=== PATIENT | female | born 1950 | race Caucasian/White ===

== ENCOUNTER → 2022-09-20 08:39 | Outpatient (BNVA) | payer MEDICARE, SELFPAY | PROVIDERS: PCP Student in an Organized Health Care Education/Training Program; Visit Provider Internal Medicine Endocrinology, Diabetes & Metabolism | DX: M81.0 Age-related osteoporosis without current pathological fracture (principal) | CPT/HCPCS: 99202 ==

== ENCOUNTER 2023-01-30 08:30 | Outpatient (REF) | payer MEDICARE, SELFPAY ==
[2023-01-30 11:15] LABS: Albumin Level 4.2 g/dL (3.5-5.0); Anion Gap 11 (12-20); Blood Urea Nitrogen 14 mg/dL (9-16); Carbon Dioxide 26 mmol/L (22-29); Chloride 107 mmol/L (96-108); Estimated Glomerular Filt Rate > 60; Glucose Random 94 mg/dL (60-115); Phosphorus 3.2 mg/dL (2.7-4.5); Potassium 3.9 mmol/L (3.3-5.1); Sodium 140 mmol/L (135-145)
[2023-01-30 11:32] LABS: Free T4 (Free Thyroxine) 1.28 ng/dL (0.71-1.85); Thyroid Stimulating Hormone 0.11 uIU/mL (0.32-4.0); Vitamin D 25-OH Total 57.5 ng/mL (>30)
[2023-01-30 14:08] LABS: Creatinine, mg/dL 81.02
[2023-01-30 15:38] LABS: Creatinine, 24Hr Urine 0.6 G/Day (1.0-2.0); Total Volume 24 Hour Urine 775 mL
[2023-01-31 18:54] LABS: Calcium, 24 Hr Urine 114 mg/24 h; Calcium/Creatinine Ratio 188 mg/g creat (30-275)
[2023-02-01 13:04] LABS: Prot Elec - Albumin 4.2 g/dL (3.8-4.8); Prot Elec - Alpha1 0.3 g/dL (0.2-0.3); Prot Elec - Alpha2 0.7 g/dL (0.5-0.9); Prot Elec - Beta 1 0.4 g/dL (0.4-0.6); Prot Elec - Beta 2 0.4 g/dL (0.2-0.5); Prot Elec - Gamma 1.1 g/dL (0.8-1.7); Prot Elec - Total Protein 7.1 g/dL (6.1-8.1)
== END 2023-01-30 08:31 | disposition home or self-care (01) ==
LOC: HO.10HDL 08:30
PROVIDERS: Visit Provider Internal Medicine Endocrinology, Diabetes & Metabolism
DX: M81.0 Age-related osteoporosis without current pathological fracture (principal); Z20.2 Contact with and (suspected) exposure to infections with a predominantly sexual mode of transmission; R53.83 Other fatigue
CPT/HCPCS: 80048; 82040; 82306; 82340; 82570; 84100; 84165; 84439; 84443; 86335

== ENCOUNTER 2023-05-17 09:06 | Outpatient (AMB) | payer MEDICARE, SELFPAY ==
[2023-05-17 09:09] VITALS: BP 144/80; PULSE 49; BMI 24.3
--- NOTE | 2023-05-17 09:09 | MHC.OFFVIS ---
Intake Vital Signs 05/17/23 09:09 Height 5 ft 4.72 in Weight 144 lb 13.499 oz BMI 24.3 BP 144/80 H Blood Pressure Location Lt brachial Position Sitting Pulse 49 L Pulse Source Pulse Oximeter Intake Visit Reasons: f/u osteoporosis-confirmed Intake Note: Patient presents today for Osteoporosis follow up visit. Magnetic Grinder Operator Required: No Accompanied by: Self / Same As Patient Allergies No Known Allergies Allergy (Verified 05/17/23 09:13) Medication List - Last Reconciled 05/17/23 by Michael Lee MD amlodipine 10 mg PO BEDTIME celecoxib 0 mg PO cholecalciferol (vitamin D3) 25 mcg PO DAILY levothyroxine 137 mcg PO DAILY omeprazole 20 mg PO BID oxybutynin chloride ER 10 mg PO DAILY trazodone 150 mg PO BEDTIME HPI HPI Comments History of Present Illness Details 72 YO F with is seen in consultation at the request of PCP for Osteoporosis. First diagnosed in 04/12/2022. Not Received treatment in the past No history of pathologic fracture or ONJ. Has several servings of dietary calcium per day in the form of milk, cheese . Not Takes Calcium supplement Takes 1000 IU of Vitamin D daily. Takes PPI, No anticoagulant, antiepileptic or glucocorticoid medication. Not Does weight bearing exercise. 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 UTD on dental cleanings and sees dentist every 6 months. No planned upcoming dental work or extractions. DXA dated 04/04: T-score in the femoral neck of -2.7 Labs: [facility] Medical History (Updated 09/20/22 @ 09:01 by Michael Lee MD) Osteoporosis Surgical History History of bilateral tubal ligation Hx of total knee replacement Hx of appendicitis Family History Mother Lung cancer Brain tumor Father Brain tumor Lung cancer Social History Alcohol intake: current Alcohol intake frequency: holidays/special occasions only Patient Tobacco Use Status: Never used Tobacco Physical Exam Vital Signs: Last Vital Signs Pulse 49 L 05/17/23 09:09 BP 144/80 H 05/17/23 09:09 BMI result Body Mass Index 24.3 Assessment & Plan Assessment & Plan (1) Osteoporosis: Code(s): M81.0 - Age-related osteoporosis without current pathological fracture Plan: This 72-year-old white female with a history of osteoporosis. Secondary causes have been ruled out. There was a slightly low TSH but hypothyroidism is managed by patient's primary care provider Plan is to discuss potential use of an anti resorptive agent like oral alendronate versus or Reclast. After a careful discussion with the patient regarding options including initiation of oral bisphosphonate for intravenous bisphosphonate versus repeating bone density in 1 year on a DEXA with TBS capacity, patient is opting to go on oral bisphosphonate. We will start alendronate 70 mg Q weekly. Went over proper administration of alendronate and side effects which include rare side effects of atypical femur fracture and osteonecrosis of the jaw Medications: New alendronate 70 mg PO QWEEK 5 tabs 11RF Coding Level of Care Code Est Pt Level 3 (48987) Diagnoses Osteoporosis M81.0
== END 2023-05-17 09:42 | disposition home or self-care (01) ==
PROVIDERS: PCP Student in an Organized Health Care Education/Training Program; Visit Provider Internal Medicine Endocrinology, Diabetes & Metabolism
DX: M81.0 Age-related osteoporosis without current pathological fracture (principal)
CPT/HCPCS: 99213

== ENCOUNTER → 2023-05-17 09:06 | Outpatient (BNVA) | payer MEDICARE, SELFPAY | PROVIDERS: PCP Student in an Organized Health Care Education/Training Program; Visit Provider Internal Medicine Endocrinology, Diabetes & Metabolism | DX: M81.0 Age-related osteoporosis without current pathological fracture (principal) | CPT/HCPCS: 99212 ==

== ENCOUNTER 2024-07-01 11:01 | Outpatient (AMB) | payer MEDICARE, SELFPAY ==
--- NOTE | 2024-07-01 11:08 | MHC.OFFVIS ---
Vital Signs 07/01/24 11:11 Height 5 ft 3.02 in Weight 141 lb 8.588 oz BMI 25.1 BP 114/82 Blood Pressure Location Rt brachial Position Sitting Pulse 58 Pulse Source Pulse Oximeter Pulse Oximetry (%) 97 Oxygen Delivery Method Room Air Intake Visit Reasons: f/u osteoporosis Intake Note: Patient presents today for Osteoporosis follow up visit. Credit Collection Specialist Required: No Accompanied by: Self / Same As Patient Allergies No Known Allergies Allergy (Verified 07/01/24 11:12) Medication List - Last Reconciled 07/01/24 by Michael Lee MD acetaminophen (Tylenol Extra Strength) 500 mg PO Q6H PRN alendronate 70 mg PO QWEEK amlodipine 10 mg PO BEDTIME celecoxib 0 mg PO cholecalciferol (vitamin D3) 25 mcg PO DAILY levothyroxine 137 mcg PO DAILY omeprazole 20 mg PO BID oxybutynin chloride ER 10 mg PO DAILY trazodone 150 mg PO BEDTIME HPI Comments Details: 73 YO F with is seen in consultation at the request of PCP for Osteoporosis. First diagnosed in 04/12/2022. Not Received treatment in the past No history of pathologic fracture or ONJ. Has several servings of dietary calcium per day in the form of milk, cheese . Not Takes Calcium supplement Takes 1000 IU of Vitamin D daily. Takes PPI, No anticoagulant, antiepileptic or glucocorticoid medication. Not Does weight bearing exercise. 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 UTD on dental cleanings and sees dentist every 6 months. No planned upcoming dental work or extractions. DXA dated 04/04: T-score in the femoral neck of -2.7 Labs: Currently on alendronate 70 mg Q weekly since 05/2023 . No fx since last visit. Taking calcium and vitamin D . [facility] Medical History (Updated 09/20/22 @ 09:01 by Michael Lee MD) Osteoporosis Surgical History History of bilateral tubal ligation Hx of total knee replacement Hx of appendicitis Family History Mother Lung cancer Brain tumor Father Brain tumor Lung cancer Social History Alcohol intake: current Alcohol intake frequency: holidays/special occasions only Patient Tobacco Use Status: Never used Tobacco Physical Exam Vital Signs: BMI result Body Mass Index 25.1 Assessment & Plan Assessment & Plan (1) Osteoporosis: Code(s): M81.0 - Age-related osteoporosis without current pathological fracture Category: Medical Plan: This 73-year-old white female with a history of osteoporosis. Secondary causes have been ruled out. Currently on alendronate 70 mg Q weekly for 1 year's time Plan is to check urine NTX as well as repeat DEXA of hip and spine. Depending upon above, may continue alendronate or give drug holiday. Patient should continue with calcium and vitamin-D Orders: Orders Collagen Crosslinks NTX Today M81.0 - Age-related osteoporosis without current pathological fracture XR DEXA axial skeleton Today M81.0 - Age-related osteoporosis without current pathological fracture Coding Level of Care Code Est Pt Level 3 (24065) Diagnoses Osteoporosis M81.0
[2024-07-01 11:11] VITALS: BP 114/82; PULSE 58; O2SAT 97; BMI 25.1
--- OUTSIDE RECORDS SUMMARY | 2024-07-01 12:12 | XMS_ITS | Clinical Summary ---
Author Organization [facility] Address [address] [place] [address] Care Team Providers Care Halal Butcher Name Role Phone Shanice West MD Primary Care Provider [phone] Allergies No known active allergies Medications Medication Sig Dispensed Refills Start Date End Date Status amLODIPine (NORVASC) tablet 10 mg Take one tab every evening. 0 03/24/2020 Active Cholecalciferol (VITAMIN D3) 50 MCG (1999 UT) capsule as directed 0 Active esomeprazole (NexIUM) capsule 20 mg 1 capsule 0 Active hydroCHLOROthiazide (HYDRODIURIL) tablet 25 mg Take 25 mg by mouth. 0 03/11/2020 Active levothyroxine (SYNTHROID, LEVOXYL) tablet 150 mcg Take 150 mcg by mouth. 0 07/28/2019 Active omeprazole (PriLOSEC) 20 MG capsule Take 20 mg by mouth 2 (two) times a day. 0 05/30/2021 Active oxybutynin (DITROPAN-XL) 5 MG 24 hr tablet Take 5 mg by mouth daily. 0 08/15/2021 Active phenazopyridine (PYRIDIUM) 100 MG tablet TAKE 2 TABLETS BY MOUTH 3 TIMES A DAY NEEDED FOR URINARY DISCOMFORT 0 09/15/2021 Active amoxicillin (AMOXIL) 500 MG tablet Take 4 tabs 1 hour prior to dental appointment 20 tablet 3 11/24/2021 Active celecoxib (CeleBREX) 200 MG capsule Take 200 mg by mouth daily. 0 11/13/2021 Active gabapentin (NEURONTIN) 300 MG capsule Take 300 mg by mouth every evening. 0 11/13/2021 Active methocarbamol (ROBAXIN) 750 MG tablet TAKE 1 TABLET BY MOUTH EVERY 6 HOURS NEEDED FOR SPASM (NOT CVD) 0 11/13/2021 Active oxyCODONE (ROXICODONE) 5 MG immediate release tablet Take 1-2 tabs every 6 hours as needed for pain 40 tablet 0 11/30/2021 Active sulfamethoxazole-tr imethoprim (BACTRIM DS) 800-160 MG per tablet TAKE 1 TABLET BY MOUTH TWICE A DAY FOR 7 DAYS TAKE WITH FOOD YOGURT [employer]OT[employer] FINISH ALL 14 tablet 0 01/05/2022 Active acetaminophen (TYLENOL EXTRA STRENGTH) 500 MG tablet Take 1,000 mg by mouth every 8 (eight) hours as needed. 0 11/13/2021 Active traZODone (DESYREL) 100 MG tablet Take 100 mg by mouth every night at bedtime. 0 12/22/2021 Active oxyCODONE (ROXICODONE) 5 MG immediate release tablet Take 1 tab every 12 hours as needed for pain 30 tablet 0 01/10/2022 Active traMADol (ULTRAM) 50 MG tablet Take 1 tab every 12 hours as needed for pain 30 tablet 0 03/14/2022 Active Active Problems Problem Noted Date Diagnosed Date Chronic pain of right knee 01/10/2022 Social History Tobacco Use Types Packs/Day Years Used Date Smoking Tobacco: Never Assessed Sex and Gender Information Value Date Recorded Sex Assigned at Not on file Gender Identity Not on file Sexual Orientation Not on file Job Start Date Occupation Industry Not on file Not on file Not on file Last Filed Vital Signs Vital Sign Reading Time Taken Comments Blood Pressure - - Pulse - - Temperature - - Respiratory Rate - - Oxygen Saturation - - Inhaled Oxygen Concentration - - Weight 75.3 kg (166 lb) 10/25/2021 11:10 AM EDT Height 162.6 cm (5' 4 ) 10/25/2021 11:10 AM EDT Body Mass Index 28.49 10/25/2021 11:10 AM EDT Plan of Treatment Health Maintenance Due Date Last Done Comments Hepatitis C Screening 1949 Depression Screening 1961 Preventative Health Evaluation 10/08/1967 Colon Cancer Screening (Colonoscopy) 1994 Breast Cancer Screening (Mammogram) 10/08/1999 Fall Risk Assessment 2014 Osteoporosis Screening (DEXA Scan) 2014 Pneumococcal Vaccine (2 of 2 - PCV) 09/05/2019 09/04/2018 Shingrix-Zoster Vaccine (2 of 2) 05/02/2021 03/07/2021 DTap / Tdap / Td (2 - Td or Tdap) 03/03/2023 03/03/2013 COVID-19 Vaccine (3 season) 2024 07/24/2020, 07/03/2020 Influenza Vaccine (#1) 2024 , 02/10/2020, 02/18/2019, Additional history exists RSV Adult > 60+ Yrs or (1 - 1-dose 75+ series) 2024 Hepatitis B Vaccines Aged Out No long er eligible based on patient's age to complete this topic RSV Ped < 20 months Aged Out No longe r eligible based on patient's age to complete this topic Care Teams Halal Butcher Relationship Specialty Start Date End Date Shanice West MD [address] [place] [phone] PCP - General Family Medicine 05/20/21
--- OUTSIDE RECORDS SUMMARY | 2024-07-01 12:12 | XMS_ITS | Data Portability ---
Author Organization [place] [facility] [place] [place] Address [address] [facility] [address] [place] [address] Care Team Providers Care Database Security Expert Name Role Phone MAC HEATH Primary Care Provider [phone] Assessment Encounter Date Assessment Date Assessment LastModified by Organization Details LastModified Time 08/01/2022 08/01/2022 Ms. Mcgee continues to do very well after undergoing right total knee replacement surgery on November 11, 2021. She will continue with her home exercise program. She does know to take antibiotics before any dental work. She will contact me prior to her annual follow-up appointment should any questions or concerns arise. jai Not available 08/01/2022 16:18:02 Plan of Treatment Reminders Order Date Submit Date Provider Last Modified By Organization Details Last Modified Time Details Appointments None record ed. Lab None record ed. Referral None record ed. Procedures None record ed. Surgeries None record ed. Imaging XR, knee, 1 or 2 view 023 08/02/19 [facility] [place] [facility], [address], [address], [place], [address], 3 10:09:56 Medication Orders None record ed. Patient TargetsNo targets recorded. Patient InstructionsNo instructions recorded. Reason for Referral None Reported. Procedures Surgical History Date Name Laterality Status Provider Name and Address Organization Details Recorded Time Appendectomy completed Rae Zee [facility] [place], 08/01/2022 15:25:02 Total knee arthroplasty completed Rae Zee [facility] [place], 08/01/2022 15:25:15 Imaging Results None recorded. Procedure Notes None recorded. Medical Equipment None Reported. Allergies No known drug allergies Medications Name Sig Start Date Stop Date Status Note LastModified by Organization Details LastModified Time celecoxib 200 mg capsule TAKE 1 CAPSULE BY MOUTH DAILY active Not Available Not Available No t Available levothyroxi ne 137 mcg tablet active Not Available Not Available Not Available oxybutynin chloride ER 10 mg tablet,exte nded release 24 hr active Not Available Not Available Not Available sulfamethox azole 800 mg-trimetho prim 160 mg tablet TAKE 1 TABLET BY MOUTH TWICE A DAY FOR 7 DAYS TAKE WITH FOOD YOGURT PROBIOT[employer] S FINISH ALL active Not Available Not Available No t Available tramadol 50 mg tablet TAKE 1 TABLET EVERY 12 HOURS NEEDED FOR PAIN active Not Available Not Available No t Available amoxicillin 500 mg tablet TAKE 4 TABS 1 HOUR PRIOR TO DENTAL APPOINTME NT active Not Available Not Available No t Available methocarbam ol 750 mg tablet TAKE 1 TABLET BY MOUTH EVERY 6 HOURS NEEDED FOR SPASM (NOT CVD) active Not Available Not Available No t Available trazodone 100 mg tablet TAKE 1 TABLET BY MOUTH EVERYDAY AT BEDTIME active Not Available Not Available No t Available phenazopyri dine 100 mg tablet TAKE 2 TABLETS BY MOUTH 3 TIMES A DAY NEEDED FOR URINARY DISCOMFOR T active Not Available Not Available No t Available amlodipine 10 mg tablet TAKE 1 TABLET BY MOUTH EVERY NIGHT AT BEDTIME active Not Available Not Available No t Available trazodone 150 mg tablet TAKE 1 TABLET BY MOUTH EVERY NIGHT AT BEDTIME active Not Available Not Available No t Available levothyroxi ne 150 mcg tablet TAKE 1 TABLET BY MOUTH EVERY DAY IN THE MORNING active Not Available Not Available No t Available oxybutynin chloride ER 5 mg tablet,exte nded release 24 hr TAKE 1 TABLET BY MOUTH EVERY DAY active Not Available Not Available No t Available gabapentin 300 mg capsule TAKE 1 CAPSULE BY MOUTH EVERY EVENING active Not Available Not Available No t Available omeprazole 20 mg capsule,del ayed release TAKE 1 CAPSULE BY MOUTH TWICE A DAY active Not Available Not Available No t Available warfarin 1 mg tablet TAKE 4 PILLS BY MOUTH DAILY AT DINNER UNLESS OTHERWISE INSTRUCTE D BY DR ROCHA'S OFFICE 08/01 completed Not Available Not Available Not Available amoxicillin 500 mg-potassiu m clavulanate 125 mg tablet TAKE 1 TABLET BY MOUTH TWICE A DAY active Not Available Not Available No t Available oxycodone 5 mg tablet TAKE 1 TABLET BY MOUTH EVERY 12 HOURS NEEDED FOR PAIN 08/01 completed Not Available Not Available Not Available enoxaparin 40 mg/0.4 mL subcutaneou s syringe ONE INJECTION DAILY TAKE DAILY UNTIL INR IS 2 OR > 08/01 completed Not Available Not Available Not Available Senexon-S 8.6 mg-50 mg tablet TAKE 2 TABLETS BY MOUTH EVERY EVENING active Not Available Not Available No t Available Vitals Date Recorded Body weight Body mass index (BMI) Body height Provider Name and Address Organization Details Last Updated DateTime 08/01/2022 62067.33 g 28.5 kg/m2 162.[address] [facility] [place], 08/01/2022 15:24:15 Social History None recorded. Functional Status None recorded. Mental Status None recorded. Family History Relationship Description Onset Age of this Age Resolved Age Notes LastModified by Organization Details LastModified Time Mother Family history of malignant neoplasm [email or web address] Not available 2022 15:24:34 Father Hypertensive disorder [email or web address] Not available 2022 15:24:48 Medical History Condition Response Hypertension Y Gynecological HistoryNo gynecological history recorded. Obstetrics History GPAL:G 0 P 0 0 0 0 Past Encounters Encounter ID Performer Location Encounter Start Date Encounter Closed Date Diagnosis/Indication Diagnosis SNOMED-CT Code Diagnosis ICD10 Code Diagnosis Note [id number] MD BASSEM Cifuentes [address] [address] 08/01/2022 15:09:03 08/01/2022 16:09:03 Pain of right knee joint 2176871087 31911 M25.561 Health Concerns Section Related Observation LastModified by Organization Detai ls LastModified Time None Recorded Concern Status LastModified by Organization Details LastModified Time None Recorded Advance Directives Directive None Recorded Payers Encounter Date Sequence Insurance Name Policy Number Policy Gamble Covered Member ID Gamble Member ID Guarantor Name 08/01/2022 1 [facility] (MEDICARE REPLACEMENT/A DVANTAGE - PPO) [id number] Gay B Parent [id number] Gay Parent Notes Date Note Type Note Provider Name and Address Organization Details Recorded Time 08/01/2022 text/html The patient presents with complaints of mild intermittent discomfort in her right knee after undergoing right total knee replacement surgery on November 11, 2021. She continues to ride her bike for exercise. She denies any fevers or chills. She does not take any medicines for discomfort. Alan Rocha MD [address] [place] [address], [place], [address], [place] [facility] [place] 08/01/2022 16:18:16 OBGyn Episode No OBEpisode recorded.
== END 2024-07-01 11:24 | disposition home or self-care (01) ==
PROVIDERS: PCP Student in an Organized Health Care Education/Training Program; Visit Provider Internal Medicine Endocrinology, Diabetes & Metabolism
DX: M81.0 Age-related osteoporosis without current pathological fracture (principal)
CPT/HCPCS: 99213

== ENCOUNTER → 2024-07-01 11:01 | Outpatient (BNVA) | payer MEDICARE, SELFPAY | PROVIDERS: PCP Student in an Organized Health Care Education/Training Program; Visit Provider Internal Medicine Endocrinology, Diabetes & Metabolism | DX: M81.0 Age-related osteoporosis without current pathological fracture (principal) | CPT/HCPCS: 99212 ==

== ENCOUNTER 2024-07-04 12:54 | Outpatient (REF) | payer MEDICARE, SELFPAY ==
--- NOTE | ~2024-07-04 | MM_ITS ---
EXAMINATION: DXA BONE DENSITY AXIAL HISTORY: Estrogen deficiency TECHNIQUE: BitPoster Dual energy absorptiometry (DEXA) of the lumbar spine, total left hip, and femoral neck was performed. COMPARISON: There are no prior studies for comparison. FINDINGS: The bone mineral density of the lumbar spine is 0.934 with a T-score of -2.1, and a Z-score of -0.2. The bone mineral density of the left total hip is 0.815 with a T-score of -1.5, and a Z-score of 0.2. The bone mineral density of the left femoral neck is 0.758 with a T-score of -2.0, and a Z-score of -0.1. FRACTURE RISK: The FRAX index suggests a risk of major osteoporotic fracture of 19.7%, and of hip fracture 4.9%. MM/XR DEXA axial skeleton IMPRESSION: Based on bone mineral density, and according to World Health Organization (WHO) criteria, the diagnosis is consistent with osteopenia. All bone density values are in grams per centimeter squared (g/cm2). Statistically, 68% of repeat scans fall within 1 SD (+/- 0.010 g/cm2 for AP spine L1-L4) and 1 SD (+/- 0.012 g/cm2 for femur total) FRAX is a trademark of the [employer] [place] for Metabolic Bone Disease, a World Health Organization (WHO) Collaborating Center. Electronically signed by: Michael Schneider MD 07/07/2024 08:52 AM EST
--- OUTSIDE RECORDS SUMMARY | 2024-07-04 13:25 | XMS_ITS | Clinical Summary ---
Author Organization [facility] Address [address] [place] [address] Care Team Providers Care Hot Die Press Operator Name Role Phone Shanice West MD Primary Care Provider [phone] Allergies No known active allergies Medications Medication [...] age to complete this topic Care Teams Hot Die Press Operator Relationship Specialty Start Date End Date Shanice West MD [address] [place] [phone] PCP - General Family Medicine 05/20/21
--- OUTSIDE RECORDS SUMMARY | 2024-07-04 13:25 | XMS_ITS | Data Portability ---
Author Organization [place] [facility] [place] Address [address] [facility] [address] [place] [address] Care Team Providers Care Defect Repairer Glassware Name Role Phone MAC HEATH Primary Care Provider Assessment Encounter Date Assessment Date Assessment LastModified [...] 1 or 2 view 023 08/02/19 23 [facility], [address], [place], [address], 3 10:09:56 Medication Orders None record ed. Patient TargetsNo targets recorded. Patient InstructionsNo instructions recorded. Reason for Referral None Reported. Procedures Surgical History Date Name Laterality Status Provider Name and Address Organization Details Recorded Time Appendectomy completed Rae Zee [facility] [place], 08/01/2022 15:25:02 Total knee arthroplasty completed Rae Zee [facility] [place], 08/01/2022 15:25:15 Imaging Results None recorded. Procedure [...] Address Organization Details Last Updated DateTime 08/01/2022 05506.33 g 28.5 kg/m2 162.[address] [facility] [place], 08/01/2022 15:24:15 Social History None recorded. Functional [...] Code Diagnosis Note [id number] MD BASSEM Cifuentes [address] [address] 08/01/2022 15:09:03 08/01/2022 16:09:03 Pain of right knee joint [id number] 80884 M25.561 Health Concerns Section Related Observation LastModified by Organization Detai ls LastModified Time None Recorded Concern Status LastModified by Organization Details LastModified Time None Recorded Advance Directives Directive None Recorded Payers Encounter Date Sequence Insurance Name Policy Number Policy Gamble Covered Member ID Gamble Member ID Guarantor Name 08/01/2022 1 [facility] (MEDICARE REPLACEMENT/A DVANTAGE - PPO) [id number] Gay B Parent [id number] Gay Parent Notes Date Note Type Note [...] any medicines for discomfort. Alan Rocha MD [address] [place] [address], [place], [address], [place] [facility] 08/01/2022 16:18:16 OBGyn Episode No OBEpisode recorded.
== END 2024-07-04 12:55 | disposition home or self-care (01) ==
LOC: HO.MAMMO 12:54
PROVIDERS: PCP Student in an Organized Health Care Education/Training Program; Visit Provider Internal Medicine Endocrinology, Diabetes & Metabolism
DX: M81.0 Age-related osteoporosis without current pathological fracture (principal)
CPT/HCPCS: 77080; 82523

== ENCOUNTER → 2024-07-04 13:30 | Outpatient (BNV) | payer MEDICARE, SELFPAY | PROVIDERS: PCP Student in an Organized Health Care Education/Training Program; Visit Provider Radiology Diagnostic Radiology | DX: E28.39 Other primary ovarian failure (principal) | CPT/HCPCS: 77080 ==

== ENCOUNTER 2025-03-31 10:37 | Outpatient (AMB) | payer MEDICARE, SELFPAY ==
[2025-03-31 10:39] VITALS: BP 128/80; PULSE 61; O2SAT 97; BMI 26.4
--- NOTE | 2025-03-31 10:39 | MHC.OFFVIS ---
Vital Signs 03/31/25 10:39 Height 5 ft 3.02 in Weight 149 lb 0.52 oz BMI 26.4 BP 128/80 Blood Pressure Location Lt brachial Position Sitting Pulse 61 Pulse Source Pulse Oximeter Pulse Oximetry (%) 97 Oxygen Delivery Method Room Air Intake Visit Reasons: f/u osteoporosis Intake Note: Patient presents today for Osteoporosis follow up visit. Closet Organizer Required: No Accompanied by: Self / Same As Patient Allergies No Known Allergies Allergy (Verified 03/31/25 10:43) Medication List - Last Reconciled 03/31/25 by Michael Lee MD acetaminophen (Tylenol Extra Strength) 500 mg PO Q6H PRN alendronate 70 mg PO QWEEK amlodipine 10 mg PO BEDTIME celecoxib 0 mg PO cholecalciferol (vitamin D3) 25 mcg PO DAILY levothyroxine 137 mcg PO DAILY omeprazole 20 mg PO BID oxybutynin chloride ER 10 mg PO DAILY trazodone 150 mg PO BEDTIME HPI Comments Details: 74 YO F with is seen in consultation at the request of PCP for Osteoporosis. First diagnosed in 04/12/2022. Not Received treatment in the past No history of pathologic fracture or ONJ. Has several servings of dietary calcium per day in the form of milk, cheese . Not Takes Calcium supplement Takes 1000 IU of Vitamin D daily. Takes PPI, No anticoagulant, antiepileptic or glucocorticoid medication. Not Does weight bearing exercise. Fracture history: hand 2011 Height loss: No WO[employer]WORK[employer] OFF[employer] history: age 53- nl menses prior Denies history of Kidney stones: Denies family history of Osteoporosis or hip fracture. UTD on dental cleanings and sees dentist every 6 months. No planned upcoming dental work or extractions. DXA dated 04/04: T-score in the femoral neck of -2.7 Labs: Currently on alendronate 70 mg Q weekly since 05/2023 . No fx since last visit. Taking calcium and vitamin D . Secondary workup was negative. Urine NTX was suppressed. Repeat DEXA showed low bone mass The patient is a 74-year-old female presenting with concerns related to bone health. She has been taking alendronate, which has resulted in improvement in bone density, moving from the osteoporotic range to the osteopenic range. A urine NTX test indicated a positive response to the medication, showing reduced bone resorption. In June, the patient experienced a fall after tripping over a dog, resulting in a significant hematoma on her side, but no fractures were sustained. She also mentioned a condition affecting her right knee ,bursitis although it was not specified further in the conversation. The patient has been advised to discontinue alendronate due to the improvement in her bone density and to continue taking calcium and vitamin D supplements. She is also participating in a bones and balance class to help maintain her bone health and prevent future falls. The patient has been instructed to ensure her home environment is safe to prevent falls and to use light weights as part of her exercise routine. [facility] Medical History (Updated 09/20/22 @ 09:01 by Michael Lee MD) Osteoporosis Surgical History History of bilateral tubal ligation Hx of total knee replacement Hx of appendicitis Family History Mother Lung cancer Brain tumor Father Brain tumor Lung cancer Social History Alcohol intake: current Alcohol intake frequency: holidays/special occasions only Patient Tobacco Use Status: Never used Tobacco Physical Exam Vital Signs: Last Vital Signs Pulse 61 03/31/25 10:39 BP 128/80 03/31/25 10:39 Pulse Ox 97 03/31/25 10:39 Oxygen Delivery Method Room Air 03/31/25 10:39 BMI result Body Mass Index 26.4 Assessment & Plan Assessment & Plan (1) Osteoporosis: Code(s): M81.0 - Age-related osteoporosis without current pathological fracture Category: Medical Plan: This 73-year-old white female with a history of osteoporosis. Secondary causes have been ruled out. Currently on alendronate 70 mg Q weekly for 1 year's time. Urine NTX is suppressed. Recent DEXA showed low bone mass Plan is to discontinue alendronate or give drug holiday. Patient should continue with calcium and vitamin-D. We will have patient follow up with primary care provider who can recheck a DEXA bone density in 2 years' time. If bone density declines into the osteoporotic range, patient referred back to endocrinology or her primary care provider can restart the alendronate 1. Osteopenia The patient's bone density has improved from the osteoporotic range to the osteopenic range due to alendronate therapy. Given the positive response, alendronate has been discontinued. The patient is advised to continue calcium and vitamin D supplementation and to maintain participation in a bones and balance class to support bone health. Follow-up bone density testing is recommended in two years to monitor any changes. This can be done with the patient's primary care provider During the visit, I discussed with the patient the improvement in her bone density and the decision to discontinue alendronate. We reviewed the importance of continuing calcium and vitamin D supplementation and maintaining her exercise routine. I emphasized the need for a safe home environment to prevent falls and recommended follow-up bone density testing in two years. The patient was advised to return to her primary care provider for ongoing management unless further issues arise. - Discontinue alendronate as advised. - Continue taking calcium and vitamin D supplements. - Maintain participation in bones and balance classes. - Ensure home environment is safe to prevent falls. - Follow up with primary care provider and consider bone density testing in two years. The patient had an opportunity to ask questions regarding treatment plan. The patient expressed understanding and agreement with the above treatment plan. Patient was informed and verbally consented to the use of an ambient scribe for clinic note documentation during this visit. Coding Level of Care Code Est Pt Level 3 (48032) Diagnoses Osteoporosis M81.0
== END 2025-03-31 11:01 | disposition home or self-care (01) ==
LOC: HO.ENCR 10:38
PROVIDERS: PCP Student in an Organized Health Care Education/Training Program; Visit Provider Internal Medicine Endocrinology, Diabetes & Metabolism
DX: M81.0 Age-related osteoporosis without current pathological fracture (principal)
CPT/HCPCS: 99213

== ENCOUNTER → 2025-03-31 10:37 | Outpatient (BNVA) | payer MEDICARE, SELFPAY | PROVIDERS: PCP Student in an Organized Health Care Education/Training Program; Visit Provider Internal Medicine Endocrinology, Diabetes & Metabolism | DX: M81.0 Age-related osteoporosis without current pathological fracture (principal) | CPT/HCPCS: 99212 ==